=== PATIENT | female | born 1990 | race Caucasian/White ===

== ENCOUNTER 2017-12-15 15:15 | Observation (INO) ==
--- NOTE | 2017-12-15 16:44 | Discharge Summary ---
Date of Encounter: 12/15/17 Time of Encounter: 16:44 - Discharge Diagnosis (1) 39 weeks gestation of Priority: Primary Status: Acute Comments: Admitted for observation for possible labor. (2) False labor after 37 weeks of gestation without delivery Priority: Secondary Status: Acute Comments: Patient with irregular contractions and no cervical change. To follow up with OB provider on 12/17/17. (3) NST (non-stress test) reactive Priority: Secondary Status: Acute Comments: FHR 140 bpm, moderate variability, +15x15 accels, no decels. - Discharge Medications Home Medications: Ferrous Sulfate 324 mg PO DAILY 12/15/17 [History] Vitamins 1 tab PO DAILY 12/15/17 [History] Allergies/Adverse Reactions: 3 Allergy/AdvReac Type Severity Reaction Status Date / Time sulfamethoxazole Allergy Hives Verified 12/15/17 15:54 [From Bactrim] trimethoprim [From Bactrim] Allergy Hives Verified 12/15/17 15:54 Date of admission: 12/15/17 15:15 Discharging clinician: Shantel Persaud Anticipated date of discharge: 12/15/17 - Patient Status Disposition: Home, Self-Care Condition: Good Functional capacity at discharge: independent ambulation Overall status at discharge: patient is back to baseline - Discharge Instructions Follow Up With: Ralf Dunaway MD [Partnered Physician] - - Diet and Activity Activity: resume usual activities as tolerated Diet: regular diet Hospital Course DIESEL MECHANIC APPRENTICE Hospital course: Keeley is a 27 year old at 39w2d who presented with contraction complaint. She is a patient of Dr. Dunaway and this has been uncomplicated. She has a reactive NST and irregular mild contractions while on the monitor here. SVE without change in 1 1/2 hours, 1 cm. Reviewed labor precautions with patient and she is to follow up with Dr. Dunaway on Sunday. Time Attestation: Total time spent providing and/or coordinating discharge services: Time Spent: Less than 30 minutes Exam - Constitutional General appearance IM: A&O X 3, pleasant, no acute distress - Respiratory Respiratory exam: Present: CTAB - Cardiovascular Cardiovascular exam IM: Present: RRR, +S1, +S2 - Rectal Rectal exam: deferred - Extremities Exam Extremities exam IM: Present: full ROM, normal capillary refill, normal inspection - Neurological Exam Neurological exam: normal gait, oriented X3, reflexes normal - VTE Reasons for not Prescribing Prophylaxis: Treatment not Indicated - Low risk for VTE
[2017-12-15 17:44] LABS: Amphetamine Screen,Urine Negative ng/mL (Cutoff=1000); Barbiturate Screen,Urine Negative ng/mL (Cutoff=200); Benzodiazepines Screen,Urine Negative ng/mL (Cutoff=200); Cannabinoid Screen,Urine Negative ng/mL (Cutoff = 50); Cocaine Screen,Urine Negative ng/mL (Cutoff= 300); Opiate Screen,Urine Negative ng/mL (Cutoff=300); Phencyclidine Screen,Urine Negative ng/mL (Cutoff=25)
== END 2017-12-15 16:51 | disposition home or self-care (01) ==
LOC: 1NENULAB
PROVIDERS: ADMIT Advanced Practice Midwife; ATTEND Advanced Practice Midwife

== ENCOUNTER 2017-12-18 07:22 | Inpatient (IN) ==
[~2017-12-18 07:22] MED LIST: Famotidine 20 MG/2 ML VIAL IVP PRN; Metoclopramide 10 MG/2 ML VIAL IVP PRN; Naloxone 0.4 MG/ML INJ IVP PRN; Ondansetron 4 MG/2 ML VIAL IVP PRN
[2017-12-18 08:17] LABS: Basophils % 0.2 %; Eosinophils % 0.2 %; Hematocrit 34.9 % (35.3-44.9); Immature Granulocytes % 1.2 % (0-4); Lymphocytes # 1.5 K/mcL (0.6-4.6); Lymphocytes % 7.6 %; Mean Corpuscular HGB Conc 34.4 g/dL (31.6-35.5); Mean Corpuscular Hemoglobin 32.3 pg (28.0-33.3); Mean Corpuscular Volume 93.8 fL (83.0-100.0); Mean Platelet Volume 9.1 fL (9.4-12.4); Monocytes # 0.6 K/mcL (0.0-1.3); Monocytes % 3.2 %; Platelet Count 260 K/mcL (140-400); Red Blood Count 3.72 M/mcL (3.82-4.97); Red Cell Distribution Width 12.4 % (11.5-14.5); Segmented Neutrophils % 87.6 %
[2017-12-18] MEDS: *HR* Nalbuphine 10 MG/ML AMPUL IVP PRN ×2 (08:43→10:58)
[2017-12-18] MEDS: Ringers Solution, Lactated 1,000 ML IVC SCH (10:24)
[2017-12-18] MEDS ORDERED: EPHEDrine 50 MG/ML VIAL ONE (11:12)
[2017-12-18] MEDS ORDERED: *HR* Ropivacaine/PF 0.2% 20 ML VIAL ONE (11:12)
[2017-12-18] MEDS ORDERED: Bupivacaine-MPF 0.25% 10 ML VIAL ONE (11:12)
[2017-12-18] MEDS ORDERED: *HR* FentaNYL (PF) 100 MCG/2 ML VIAL ONE (11:12)
[2017-12-18] MEDS ORDERED: Epidural Premix (fent/bupiv) 110 ML EP ONE ×2 (11:12→20:03)
--- NOTE | 2017-12-18 12:14 | OB/GYN History & Physical ---
Date of Encounter: 12/18/17 Time of Encounter: 10:45 Assessment and Plan (1) Intrauterine Current visit: Yes Status: Acute Admit to L&D for observation of labor Expectant management Labs- CBC and clot to hold Pain management plan was NCB and now is epidural - may have upon request CEFM Next status evaluation [address] Arechiga is OB corporate travel consultant and is available as needed. (2) Spontaneous rupture of amniotic membranes Current visit: Yes Status: Acute (3) 39 weeks gestation of Current visit: Yes Status: Acute History of Present Illness Chief complaint: SROM HPI: Ms. Brown is a 27 year old female at 39 weeks 5 days gestation with an estimated date of of 12/20/17 dated by LMP. She presents status post spontaneous rupture of membranes at 0230 this morning with contractions following 15 minutes later. She endorses good movement and denies vaginal bleeding. She has been followed by Dr. Dunaway throughout her . Her has been uncomplicated. records are available electronically and have been reviewed. Labs: A+ GBS negative HIV negative Hep B negative T. Palladium negative GC/CL negative Rubella immune Varicella immune Past Med Surg Social Fam HX - Past Medical History Medical history: no medical history Psychiatric history: no psych history - Past Surgical History Surgical History: other Additional surgical history: left knee surgery - Social History Smoking Status: Never smoker Smokeless Tobacco Status: No Alcohol use: none Drug use: none - Family History Sister Living Status: Still Living Hx Family Cardiac Disorders: No Hx Family Respiratory Disorders: No Hx Family Cancer: No Hx Family GI Disorders: No Hx Family Genitourinary Disorders: No Hx Family Endocrine Disorder: No Hx Family Musculoskeletal Disorders: No Hx Family Neuromuscular Disorders: No Hx Family Neurologic Disorders: No Hx Family HEENT Disorders: No Hx Family Autoimmune Disorders: No Hx Family Reproductive Disorders: No Hx Family Psychosocial Disorders: No Hx Family Medical Disorders: Yes (von willebrands disease) Obstetrical History - Pregnancies : 1 Para: 0 Term: 0 : 0 Ab's: 0 Livin Medications and Allergies Ferrous Sulfate 324 mg PO DAILY 12/15/17 [History] Vitamins 1 tab PO DAILY 12/15/17 [History] 3 Allergy/AdvReac Type Severity Reaction Status Date / Time sulfamethoxazole Allergy Hives Verified 12/15/17 15:54 [From Bactrim] trimethoprim [From Bactrim] Allergy Hives Verified 12/15/17 15:54 Review of System OB All systems PM: reviewed and no additional remarkable complaints except as stated Exam - Vital Signs Vital signs: Initial Vital Signs Temp Pulse Resp BP 97.9 F 86 16 125/78 12/18/17 04:39 12/18/17 04:39 12/18/17 04:39 12/18/17 04:39 - Constitutional Constitutional: well developed, well nourished, no acute distress, obese - HEENT HEENT: PERRL, Normocephaly, Mucus Membranes Moist - Neck Neck exam: full ROM - Lungs Respiratory exam: CTAB - Cardiovascular Cardiovascular exam: RRR, +S1, +S2 - Breasts Breast: bilateral: normal - Abdomen Abdomen: Present: bowel sounds normal, gravid, non tender - Extremities Extremities exam: normal capillary refill, normal inspection, radial pulses palpable and symmetrical - Vulva Vulva: bilateral: normal - Vagina Vagina: Present: normal moisture - Cervix Dilation: 2 Effacement: 100 Station: 0 - Uterus Uterus exam: Present: normal size, normal contour - Adnexa Adnexa: bilateral: normal - Anus/Rectum Anus/Rectum: Present: normal perianal skin Results Result Diagrams: 12/18/17 08:04 Abnormal lab results WBC 19.4 K/mcL (4.3-11.1) H 12/18/17 08:04 RBC 3.72 M/mcL (3.82-4.97) L 12/18/17 08:04 Hct 34.9 % (35.3-44.9) L 12/18/17 08:04 MPV 9.1 fL (9.4-12.4) L 12/18/17 08:04 Neutrophils # 17.0 K/mcL (1.6-8.9) H 12/18/17 08:04 All other labs normal. - VTE Reasons for not Prescribing Prophylaxis: Treatment not Indicated - Low risk for VTE
--- NOTE | 2017-12-18 12:34 | Anesthesia Evaluation PreOp ---
Date of Encounter: 12/18/17 Time of Encounter: 11:15 - Past History Planned Operation: epidural Cardiac History: Denies any Significant Hx Pulmonary History: Denies Any Significant HX OREMAN History: Denies Any Significant HX Other Medical History: GERD, Other (sister has von willebrand, patient tested negative) Anesthesia History: No Prior Anesthetic Complications : Yes Test: Positive Alcohol Use: none Drug use: none Medications and Allergies Ferrous Sulfate 324 mg PO DAILY 12/15/17 [History] Vitamins 1 tab PO DAILY 12/15/17 [History] 3 Allergy/AdvReac Type Severity Reaction Status Date / Time sulfamethoxazole Allergy Hives Verified 12/15/17 15:54 [From Bactrim] trimethoprim [From Bactrim] Allergy Hives Verified 12/15/17 15:54 Anesthesia Results - Labs 12/18/17 08:04 Anesthesia Exam 3 Vital Signs Time 1115 BP 120/73 Pulse 102 Resp O2 Sat 99 Height: 64 Weight: 94 NPO (# of Hours): clears Pain Scale: 8 Pain Scale Used: Numeric (1 - 10) - HEENT Pupil (Motor): Pupils equal Mallampati: IV Teeth: Normal Oral Opening: Greater than 3 - OREMAN LOC: Oriented OREMAN Motor: Normal RUE, Normal LUE, Normal RLE, Normal LLE, Normal Face OREMAN Sensory: Normal: RUE, LUE, RLE, LLE, Face - Cardiac Rhythm: Regular Murmur: None JVD: No Carotid Bruit: No - Pulmonary Breath Sounds: bilateral Clear Respiratory Effort: Symmetrical Anesthesia Assess/Plan ASA Score: 2 Modified Jamey Scale for Level of Consciousness: Cooperative, oriented, and tranquil Anesthetic Plan: Regional Autologous Blood: No Monitoring Plan: Standard Monitors
--- NOTE | 2017-12-18 12:41 | Anesthesia Procedures ---
Date of Encounter: 12/18/17 Time of Encounter: 11:50 Procedures: Anesthesia - Epidural/Spinal Patient ID/Chart reviewed: Yes Patient examined: Yes OB Eval: Gestational age: 39 weeks 5 days OB Eval: : 1 OB Eval: Hx Para: 0 OB Eval: Dilated at (cm): 3 OB Eval: Contractions: Non-stressed pattern Consent Obtained: Yes Supplemental Oxygen: None/Room Air Site Prep: Aseptic Technique, Sterile prep and drape, Povidone-Iodine 1% Patient position: upright Local Anesthetic: Lidocaine 1% Amount of Local Anesthetic used: 3 Touhy Needle Gauge: 18 Touhy Needle Depth (cm): 6 Catheter Depth at Skin (cm): 13 Test Dose (1.5% Lido + Epi): Volume given (mls): 3 Test Dose Result: Negative Loading Dose: 0.25% Marcaine (mls): 5 Loading Dose: Fentanyl (mcg): 100 Loading Dose: Other: 3 ml saline Loading Dose Administered: Thru Catheter Infusion Med: 0.125% Bupivacaine w/ 2 mcg/ml Fentanyl Infusion Rate (mls/hr): [address]: Tegaderm, Tape Interspace Used: L3-L4 Loss of Resistance (HELENE): Yes (air) Blood: No CSF: No Paresthesia: No Procedure: procedure started at 1149, finished at 1215 3 Vital Signs Time 1149 start 1159 test 1207 bolus 1215 finish BP 134/80 130/81 116/65 120/75 Pulse 100 111 109 109 Resp 18 18 18 18 O2 Sat 99 99 99 99
--- NOTE | 2017-12-18 13:21 | Event Note ---
Date of Encounter: 12/18/17 Time of Encounter: 13:20 S: Patient comfortable with epidural. O: Vital signs stable Category 1 heart tracing Rupture of membranes approaching 12 hours A: 39 weeks gestation IUP Spontaneous rupture of membranes without subsequent delivery P: Dr. Arechiga consulted regarding extended rupture of membranes greater than 12 hours. Advised to begin penicillin prophylaxis. Discussed with this patient and her and they are going to discuss and then advise staff certified nurse midwife as to their decision. 1335: Patient and agreeable to penicillin prophylaxis. Orders placed.
[2017-12-18] MEDS ORDERED: Penicillin G Potassium 5,000,000 UNIT in 0.9 % Sodium Chloride Mini Bag 100 ML IVPB ONE (13:37)
--- NOTE | 2017-12-18 15:21 | OB Labor Progress Note ---
Date of Encounter: 12/18/17 Time of Encounter: 15:19 Labor Progress Note - Subjective Subjective: Patient comfortable with epidural - Cervix Cervix: 4/100/-1 - Heart Tones Heart Tones: Baseline 130 Minimal to moderate variability Accelerations present No decelerations FHR category I - [place]: Contractions every 2-3 minutes and palpate strong - Interventions Interventions: SVE Position change to peanut ball right side - Plan Plan: Continue expectant management Hourly position changes Recheck cervix at 1700 Anticipate
[2017-12-18] MEDS ORDERED: Penicillin G Potassium 2,500,000 UNIT in 0.9 % Sodium Chloride 100 ML IVPB SCH (16:00)
--- NOTE | 2017-12-18 17:35 | OB Labor Progress Note ---
Date of Encounter: 12/18/17 Time of Encounter: 17:33 Labor Progress Note - Subjective Subjective: Patient remains comfortable with epidural - Cervix Cervix: 6/100/-1 - Heart Tones Heart Tones: Baseline 130 Moderate variability Accelerations present No Decelerations FHR category I - [place]: Contractions palpated at every 2-3 minutes and strong - Interventions Interventions: SVE Position changed to peanut ball - Plan Plan: Continue expectant management Continue hourly position changes Recheck in 2 hours Anticipate
[2017-12-18] MEDS: Penicillin G Potassium 2,500,000 UNIT in 0.9 % Sodium Chloride 100 ML IVPB SCH ×2 (18:04→22:21)
[2017-12-18] MEDS ORDERED: Acetaminophen 325 MG TABLET PO ONE (19:32)
--- NOTE | 2017-12-18 19:37 | OB Labor Progress Note ---
Date of Encounter: 12/18/17 Time of Encounter: 19:33 Labor Progress Note - Subjective Subjective: Patient reports some breakthrough pain with epidural. Encouraged to push bolus button. - Cervix Cervix: 6-7/100/-1 - Heart Tones Heart Tones: Baseline 150 Minimal to moderate variability Accelerations present No decelerations FHR category I - [place]: Contractions palpated every 3 minutes and strong - Interventions Interventions: SVE Position change to deep lateral left - Plan Plan: Continue expectant management Position changes hourly Consider pitocin if no cervical change in next 2 hours Recheck cervix 2130 Anticipate
--- NOTE | 2017-12-18 21:44 | OB Labor Progress Note ---
Date of Encounter: 12/18/17 Time of Encounter: 21:41 Labor Progress Note - Subjective Subjective: Patient comfortable with epidural. Has felt nauseous and received Zofran. - Cervix Cervix: 8/100/-1 - Heart Tones Heart Tones: Baseline 150 Accelerations present Few variable decelerations Moderate variability FHR category II - [place]: Contractions every 5 minutes and palpate moderate - Interventions Interventions: SVE Position changes to Natalie sit - Plan Plan: Continue expectant management Position changes hourly Advised to start Pitocin secondary to an adequate contraction pattern-patient declined at this time Anticipate vaginal delivery Dr. Arechiga is aware of plan of care and agrees
[2017-12-18] MEDS ORDERED: Oxytocin 20 units/ LR 1000 mL 20 UNIT/1,000 ML BAG IVC SCH (22:15)
--- NOTE | 2017-12-18 23:38 | OB Labor Progress Note ---
Date of Encounter: 12/18/17 Time of Encounter: 23:36 Labor Progress Note - Subjective Subjective: Patient comfortable with epidural. She reports feeling a tingling sensation in her legs. - Cervix Cervix: 9/100/0 - Heart Tones Heart Tones: FHR category I - [place]: Contractions every 2-3 minutes and palpate moderate to strong - Interventions Interventions: SVE Position changes to peanut ball right side - Plan Plan: Continue expectant management Hourly position changes with peanut ball and deep left lateral Increase Pitocin as needed Recheck cervix in 2 hours Anticipate vaginal delivery
--- NOTE | 2017-12-19 03:51 | Event Note ---
Date of Encounter: 12/19/17 Time of Encounter: 03:49 Dr. Arechiga notified of FHR category II tracing s/t tachycardia in 170's and variables with pushing. Patient is complete and pushing x 30 minutes. Anticipate .
[2017-12-19] MEDS ORDERED: Epidural Premix (fent/bupiv) 110 ML EP ONE (03:53)
--- NOTE | 2017-12-19 04:28 | OB Labor Progress Note ---
Date of Encounter: 12/19/17 Time of Encounter: 04:24 Labor Progress Note - Subjective Subjective: Patient comfortable with epidural and pushing. - Cervix Cervix: 10/100/+2 - Heart Tones Heart Tones: Baseline 175 Moderate variability Accelerations present Variable decelerations with pushing FHR Category II - [place]: Contractions every 2-3 and palpate strong - Interventions Interventions: Total pushing time 1.5 hours 250ml bolus initiated - Plan Plan: Continue expectant management Passive descent utilized now Anticipate Dr. Arechiga aware of Category II tracing unresolved with bolus intervention
[2017-12-19] MEDS ORDERED: Acetaminophen 325 MG TABLET PO ONE (04:30)
--- NOTE | 2017-12-19 05:46 | OB Labor Progress Note ---
Date of Encounter: 12/19/17 Time of Encounter: 05:42 Labor Progress Note - Subjective Subjective: Patient comfortable with epidural. - Cervix Cervix: 10/100/+2 - Heart Tones Heart Tones: FHR Category II Baseline 180 Minimal to moderate variability Few accelerations Variable and late decelerations - [place]: Contractions every 1.5-3 minutes and palpate moderate to strong - Interventions Interventions: Dr. Arechiga called to bedside for evaluation s/t to persistent category II tracing. - Plan Plan: Assume active management of labor Recommendation from Dr. Arechiga is to attempt vaccuum extraction Patient requests time to discuss options Anticipate Dr. Arechiga at bedside for consult Care turned over to Dr. Arechiga
[2017-12-19] MEDS ORDERED: Rho Immune Globulin 1,500 UNIT SYRINGE IM PRN (06:42)
[2017-12-19] MEDS ORDERED: Measles/Mumps/Rubella Vacc 0.5 ML VIAL SQ PRN (06:42)
[2017-12-19] MEDS ORDERED: *HR* HYDROcodone/Acet 5/325 mg TABLET PO PRN (06:42)
[2017-12-19] MEDS ORDERED: Acetaminophen 325 MG TABLET PO PRN (06:42)
[2017-12-19] MEDS ORDERED: Oxytocin 20 units/ LR 1000 mL 20 UNIT/1,000 ML BAG IVC SCH (06:45)
--- NOTE | 2017-12-19 06:49 | OB/GYN Procedure Note ---
Delivery - Delivery Date: 12/19/17 Provider: Montrell Arechiga Delivery induction: none Delivery augmentation: pitocin Delivery monitor: external FHT, external uterine Anesthesia: epidural Quantitated Blood Loss: 300 - Infant (s) A Infant Delivery Date: 12/19/17 Infant Delivery Time: 06:20 Presentation: vertex Position: MEDARDO Route of delivery: Gender: Female Viability: Viable Pounds: 8 Ounces: 1 at 1 minute: 7 at 5 mins: 10 Shoulder Dystocia: not encountered Specimens collected: cord blood Placenta: spontaneous Cord: 3 umbilical vessels, delivered through nuchal - Repair Episiotomy: none Laceration Description: Perineal - 3rd Degree (Partial third degree with superficial tear of capsule) - Complications Delivery complications: meconium - Disposition Mom disposition: stable in LDR disposition: stable in LDR - Comments Comments: Patient's a 27-year-old primigravida came in in labor eventually reach complete dilatation however because of tachycardia and decreased variability i was consulted by manifest clerk service to care to assume care. Pt's cervix was checked and she was +2 to +3 station with significant. caput. She did have tachycardia with decreased variability and occasional late decelerations that did not respond to resuscitative measures. We did discuss vacuum versus possible section however this patient very strongly desired is little intervention as possible throughout the entire labor progress. Eventually patient and her and consent for vacuum application. While making preparations for vacuum tracing did improve following a large variable with improvement of baseline to 160's with improved short term variability. With good maternal effort infant was delivered from CHAD presentation. There was no shoulder dystocia. Moderate thin MSF at been noted earlier in the day which had seemed to have improved. After delivery of the head large amt of thick MSF was noted. After delivery of the the baby placed on maternal abdomen. Apgars were 7 and 10. weight was 8lb 1 oz. We had spontaneous delivery of normal placenta and uterus was massaged until firm. Pt declined Pitocin bolus. Third degree laceration was repaired under epidural with 2-0 and 3-0 Vicryl. Mother and recovered in LDR.
[2017-12-19] MEDS: Ringers Solution, Lactated 1,000 ML IVC SCH (09:50)
[2017-12-19] MEDS: Ibuprofen 600 MG TABLET PO PRN ×2 (10:23→18:20)
[2017-12-19] MEDS: Prenatal Vit/FA 1 EACH TABLET PO SCH (10:29)
[2017-12-20] MEDS: Ibuprofen 600 MG TABLET PO PRN ×3 (00:48→23:34)
[2017-12-20 11:21] LABS: Basophils % 0.2 %; Eosinophils # 0.2 K/mcL (0.0-0.6); Eosinophils % 0.8 %; Hematocrit 27.1 % (35.3-44.9); Hemoglobin 9.3 g/dL (11.5-15.4); Immature Granulocytes % 0.9 % (0-4); Lymphocytes # 2.2 K/mcL (0.6-4.6); Lymphocytes % 10.9 %; Mean Corpuscular HGB Conc 34.3 g/dL (31.6-35.5); Mean Corpuscular Hemoglobin 32.7 pg (28.0-33.3); Mean Corpuscular Volume 95.4 fL (83.0-100.0); Mean Platelet Volume 9.6 fL (9.4-12.4); Monocytes % 4.9 %; Neutrophils # 16.4 K/mcL (1.6-8.9); Platelet Count 249 K/mcL (140-400); Red Blood Count 2.84 M/mcL (3.82-4.97); Segmented Neutrophils % 82.3 %
[2017-12-20] MEDS ORDERED: Benzocaine/Menthol 56 GM AEROSOL SPRAY TP ONE (11:32)
[2017-12-20] MEDS ORDERED: Benzocaine/Menthol 56 GM AEROSOL SPRAY TP PRN (12:04)
[2017-12-20] MEDS ORDERED: Ibuprofen 600 MG TABLET PO ONE (15:44)
[2017-12-21] MEDS: Ibuprofen 600 MG TABLET PO PRN (05:17)
[2017-12-21 06:06] LABS: Basophils # 0.1 K/mcL (0.0-0.2); Basophils % 0.4 %; Eosinophils # 0.3 K/mcL (0.0-0.6); Hematocrit 27.1 % (35.3-44.9); Immature Granulocytes % 1.8 % (0-4); Lymphocytes # 2.5 K/mcL (0.6-4.6); Lymphocytes % 14.3 %; Mean Corpuscular HGB Conc 34.3 g/dL (31.6-35.5); Mean Corpuscular Hemoglobin 32.7 pg (28.0-33.3); Mean Corpuscular Volume 95.4 fL (83.0-100.0); Mean Platelet Volume 9.2 fL (9.4-12.4); Monocytes # 0.7 K/mcL (0.0-1.3); Monocytes % 4.1 %; Neutrophils # 13.5 K/mcL (1.6-8.9); Platelet Count 245 K/mcL (140-400); Red Blood Count 2.84 M/mcL (3.82-4.97); Red Cell Distribution Width 12.6 % (11.5-14.5); Segmented Neutrophils % 77.4 %
[2017-12-21 06:14] LABS: Hemoglobin 9.3 g/dL (11.5-15.4)
[2017-12-21 07:49] VITALS: BP 114/78
[2017-12-21] MEDS: Prenatal Vit/FA 1 EACH TABLET PO SCH (08:43)
--- NOTE | 2017-12-21 09:08 | Discharge Summary ---
Date of Encounter: 12/21/17 Time of Encounter: 09:06 - Discharge Diagnosis (1) Status post vaginal delivery Priority: Primary Status: Acute Comments: Patient meeting day 2 milestones. Discharge home today. (2) Breast feeding status of mother Priority: Secondary Status: Acute Comments: Lacation support prn Patient states she has a breast pump at home. (3) Third degree laceration of perineum during delivery, Priority: Secondary Status: Acute Comments: Patient reports adequate pain control with Motrin. Sitz baths discussed Will discharge home with Ibuprofen RX (4) anemia Priority: Secondary Status: Acute Comments: Patient asymptomatic, vitals WNL. Continue Iron daily, will send patient with prescription - Discharge Medications Prescriptions: Ibuprofen [Motrin] 600 mg PO Q6HR PRN #60 tablet PRN Reason: Cramping Docusate [Colace] 100 mg PO BID #60 capsule Ferrous Sulfate 325 mg PO DAILY #30 tablet Home Medications: Vitamins 1 tab PO DAILY 12/15/17 [History] Acetaminophen [Tylenol] 650 mg PO Q6HR PRN tablet 12/21/17 [Rx] Benzocaine/Menthol [place] [Dermoplast [place]] 1 appl TP QID PRN aerosol 12/21/17 [Rx] Docusate [Colace] 100 mg PO BID #60 capsule 12/21/17 [Rx] Ferrous Sulfate 325 mg PO DAILY #30 tablet 12/21/17 [Rx] Ibuprofen [Motrin] 600 mg PO Q6HR PRN #60 tablet 12/21/17 [Rx] Allergies/Adverse Reactions: Allergy/AdvReac Type Severity Reaction Status Date / Time sulfamethoxazole Allergy Hives Verified 12/15/17 15:54 [From Bactrim] trimethoprim [From Bactrim] Allergy Hives Verified 12/15/17 15:54 Data Procedures and tests throughout hospitalization: Laboratory Tests 12/18/17 12/20/17 12/21/17 08:04 04:18 05:45 WBC 19.4 H 20.0 H 17.4 H RBC 3.72 L 2.84 L 2.84 L Hgb 12.0 9.3 L D 9.3 L Hct 34.9 L 27.1 L 27.1 L MCV 93.8 95.4 95.4 MCH 32.3 32.7 32.7 MCHC 34.4 34.3 34.3 RDW 12.4 13.0 12.6 Plt Count 260 249 245 MPV 9.1 L 9.6 9.2 L Immature Gran % 1.2 0.9 1.8 Seg Neutrophils % 87.6 82.3 77.4 Lymphocytes % 7.6 10.9 14.3 Monocytes % 3.2 4.9 4.1 Eosinophils % 0.2 0.8 2.0 Basophils % 0.2 0.2 0.4 Neutrophils # 17.0 H 16.4 H 13.5 H Lymphocytes # 1.5 2.2 2.5 Monocytes # 0.6 1.0 0.7 Eosinophils # 0.0 0.2 0.3 Basophils # 0.0 0.0 0.1 Immature Plt Fraction 2.0 Labs on day of discharge: Labs from last 24 hours 12/21/17 12/20/17 05:45 04:18 WBC 17.4 H 20.0 H RBC 2.84 L 2.84 L Hgb 9.3 L 9.3 L D Hct 27.1 L 27.1 L MCV 95.4 95.4 MCH 32.7 32.7 MCHC 34.3 34.3 RDW 12.6 13.0 Plt Count 245 249 MPV 9.2 L 9.6 Immature Gran % 1.8 0.9 Seg Neutrophils % 77.4 82.3 Lymphocytes % 14.3 10.9 Monocytes % 4.1 4.9 Eosinophils % 2.0 0.8 Basophils % 0.4 0.2 Neutrophils # 13.5 H 16.4 H Lymphocytes # 2.5 2.2 Monocytes # 0.7 1.0 Eosinophils # 0.3 0.2 Basophils # 0.1 0.0 Immature Plt Fraction 2.0 Date of admission: 12/18/17 07:22 Primary care physician: Montrell Telles DO Consults: 12/19/17 06:43 Consult to Service Counter Cashier [CONS] Routine Comment: Vaginal delivery, consult needed Discharging clinician: Shantel Persaud Anticipated date of discharge: 12/21/17 - Patient Status Disposition: Home, Self-Care Condition: Good Functional capacity at discharge: independent ambulation Overall status at discharge: patient is progressing back to baseline - Discharge Instructions Follow Up With: Montrell Telles DO [Primary Care Provider] - Ralf Dunaway MD [Partnered Physician] - - Diet and Activity Activity: resume usual activities as tolerated Diet: regular diet Hospital Course Reason for admission: active labor, ROM Delivery: Episiotomy: none complications: none Discharge diagnosis: IUP at term delivered baby: female Hospital course: - Delivery Date: 12/19/17 Provider: Montrell Arechiga Delivery induction: none Delivery augmentation: pitocin Delivery monitor: external FHT, external uterine Anesthesia: epidural Quantitated Blood Loss: 300 - Infant (s) Infant A Delivery Date: 12/19/17 Infant Delivery Time: 06:20 Presentation: vertex Position: MEDARDO Route of delivery: Gender: Female Viability: Viable Pounds: 8 Ounces: 1 at 1 minute: 7 at 5 mins: 10 Shoulder Dystocia: not encountered Specimens collected: cord blood Placenta: spontaneous Cord: 3 umbilical vessels, delivered through nuchal Patient progressed normally through her course and is ready to be discharged home today. Her pain is well controlled with Motrin, eating regular diet and tolerating without difficulty. Time Attestation: Total time spent providing and/or coordinating discharge services: Time Spent: Less than 30 minutes Exam - Constitutional Vitals: Temp Pulse Resp BP Pulse Ox 98.1 F 93 16 114/78 98 12/21/17 07:48 12/21/17 07:48 12/21/17 07:48 12/21/17 07:48 12/21/17 07:48 General appearance IM: A&O X 3, no acute distress - Respiratory Respiratory exam: Present: CTAB - Cardiovascular Cardiovascular exam IM: Present: RRR, +S1, +S2 - GI/Abdominal GI/Abdominal exam IM: normal bowel sounds, soft - Rectal Rectal exam: deferred - Uterine Tone: Firm Uterus Position: At Umbilicus - Extremities Exam Extremities exam IM: Present: full ROM, normal capillary refill, normal inspection - Neurological Exam Neurological exam: alert, normal gait, oriented X3
== END 2017-12-21 15:45 | disposition home or self-care (01) | DRG 768 ==
LOC: 1NENULAB → 1NENUOBS 12-19 09:02
PROVIDERS: ADMIT Advanced Practice Midwife; ATTEND Advanced Practice Midwife

== ENCOUNTER 2021-07-15 07:01 | Inpatient (IN) ==
[~2021-07-15 07:01] MED LIST changes: +*HR* Nalbuphine 10 MG/ML AMPUL IV PRN; +Lidocaine 1% 20 ML MDV INFILT PRN; -Ondansetron 4 MG/2 ML VIAL IVP PRN; +Oxytocin 30 UNIT/503 ML BAG IVC ONE; +Ringers Solution, Lactated 1,000 ML IVC SCH; +Ringers Solution, Lactated 1,000 ML ONE
[2021-07-15 07:12] LABS: Basophils % 0.3 %; Eosinophils # 0.1 K/mcL (0.0-0.6); Eosinophils % 0.9 %; Hematocrit 33.8 % (35.3-44.9); Hemoglobin 11.8 g/dL (11.5-15.4); Immature Granulocytes % 1.1 % (0-4); Lymphocytes # 2.1 K/mcL (0.6-4.6); Lymphocytes % 13.7 %; Mean Corpuscular HGB Conc 34.9 g/dL (31.6-35.5); Mean Corpuscular Hemoglobin 32.8 pg (28.0-33.3); Mean Corpuscular Volume 93.9 fL (83.0-100.0); Mean Platelet Volume 9.2 fL (9.4-12.4); Monocytes # 0.7 K/mcL (0.0-1.3); Monocytes % 4.5 %; Neutrophils # 11.9 K/mcL (1.6-8.9); Platelet Count 264 K/mcL (140-400); Red Cell Distribution Width 12.5 % (11.5-14.5); Segmented Neutrophils % 79.5 %
[2021-07-15] MEDS ORDERED: Penicillin G Potassium 5,000,000 UNIT in 0.9 % Sodium Chloride Mini Bag 100 ML IVPB ONE (07:29)
[2021-07-15] MEDS ORDERED: Penicillin G Potassium 2,500,000 UNIT/105 ML MLS IVPB SCH (07:30)
[2021-07-15] MEDS ORDERED: EPHEDrine 50 MG/ML VIAL IVP PRN (07:31)
[2021-07-15 07:42] LABS: Influenza A PCR Negative (Negative); Influenza B PCR Negative (Negative); Resp. Syncytial Virus PCR Negative (Negative)
[2021-07-15] MEDS ORDERED: Epidural Premix (fent/bupiv) 110 ML EP SCH (07:45)
[2021-07-15 08:16] LABS: SARS-CoV-2 by PCR (In House) Negative (Negative)
[2021-07-15 08:55] LABS: Amphetamine Screen,Urine Negative ng/mL (Cutoff=1000); Barbiturate Screen,Urine Negative ng/mL (Cutoff=200); Benzodiazepines Screen,Urine Negative ng/mL (Cutoff=200); Cannabinoid Screen,Urine Negative ng/mL (Cutoff = 50); Cocaine Screen,Urine Negative ng/mL (Cutoff= 300); Opiate Screen,Urine Negative ng/mL (Cutoff=300); Phencyclidine Screen,Urine Negative ng/mL (Cutoff=25)
[2021-07-15] MEDS ORDERED: Ibuprofen 600 MG TABLET PO ONE (10:11)
[2021-07-15] MEDS ORDERED: Preparation H Ointment 57 GM TUBE RC PRN (12:39)
[2021-07-15] MEDS ORDERED: Lanolin 7 G OINT...G. TP PRN (12:39)
[2021-07-15] MEDS ORDERED: Benzocaine/Menthol 56 GM AEROSOL SPRAY TP PRN (12:39)
[2021-07-15] MEDS ORDERED: Ondansetron ODT 4 MG TAB.RAPDIS SL PRN (12:39)
[2021-07-15] MEDS: Acetaminophen 325 MG TABLET PO SCH ×2 (13:17→20:14)
[2021-07-15] MEDS: Ibuprofen 600 MG TABLET PO SCH (18:25)
[2021-07-16] MEDS: Ibuprofen 600 MG TABLET PO SCH ×2 (00:18→05:52)
[2021-07-16] MEDS: Acetaminophen 325 MG TABLET PO SCH ×2 (02:30→09:07)
[2021-07-16 03:58] VITALS: O2SAT 98
[2021-07-16 07:19] VITALS: BP 105/70; PULSE 86; TEMP 97.8
[2021-07-16] MEDS ORDERED: Prenatal Vit/FA 1 EACH TABLET PO SCH (09:00)
== END 2021-07-16 11:24 | disposition home or self-care (01) | DRG 807 ==
LOC: 1NENULAB → 1NENUOBS 12:19
PROVIDERS: ADMIT Registered Nurse; ATTEND Registered Nurse